=== PATIENT | female | born 1940 | race Caucasian/White ===

== ENCOUNTER 2019-09-20 18:37 | Emergency (ER) | payer MEDICARE, OTHER ==
[~2019-09-20] VITALS: Ht 162.6 cm; Wt 63.6 kg
[2019-09-20 19:26] LABS: BASO # 0.1 10^3/uL (0.0-0.2); BASO % 0.6 % (0.0-1.0); EOS # 0.3 10^3/uL (0.0-0.5); EOS % 3.8 % (0.0-3.0); LYMPH # 1.8 10^3/uL (1.5-5.0); LYMPH % 22.8 % (24.0-44.0); MEAN CORPUSCULAR HEMOGLOBIN 26.6 pg (27.0-33.0); MEAN CORPUSCULAR HGB CONC 30.6 g/dl (32.0-36.5); MONO # 0.8 10^3/uL (0.0-0.8); MONO % 9.6 % (0.0-5.0); NEUTROPHILS # 4.9 10^3/uL (1.5-8.5); NEUTROPHILS % 62.8 % (36.0-66.0); PLATELET COUNT, AUTOMATED 294 10^3/uL (150-450); RED BLOOD COUNT 4.14 10^6/uL (4.00-5.40); WHITE BLOOD COUNT 7.9 10^3/uL (4.0-10.0)
[2019-09-20 19:41] LABS: INR 1.03; PROTHROMBIN TIME 13.2 SECONDS (11.8-14.0)
[2019-09-20 19:42] LABS: PARTIAL THROMBOPLASTIN TIME 41.2 SECONDS (25.0-38.4)
[2019-09-20] MEDS ORDERED: CARV6.25 PO (19:47)
[2019-09-20] MEDS ORDERED: ROSU10TA6 PO (19:47)
[2019-09-20] MEDS ORDERED: GABA-843 PO (19:47)
[2019-09-20] MEDS ORDERED: FURO20TA2 PO (19:47)
[2019-09-20] MEDS ORDERED: ZOLP5TAB PO (19:47)
[2019-09-20] MEDS ORDERED: CETI10CH PO (19:47)
[2019-09-20] MEDS ORDERED: LEVO50TA5 PO (19:47)
[2019-09-20] MEDS ORDERED: ACET-683 PO (19:47)
[2019-09-20] MEDS ORDERED: CITA20TA6 PO (19:47)
[2019-09-20] MEDS ORDERED: FAMO20TA PO (19:47)
[2019-09-20] MEDS ORDERED: CYMB60CA3 PO (19:47)
[2019-09-20] MEDS ORDERED: ACID1CAP5 PO (19:47)
[2019-09-20] MEDS ORDERED: LORA0.5T11 PO (19:47)
[2019-09-20] MEDS ORDERED: K-TA10TA2 PO (19:47)
[2019-09-20] MEDS ORDERED: CLOP75TA2 PO (19:47)
[2019-09-20] MEDS ORDERED: PANT40TA3 PO (19:47)
[2019-09-20] MEDS ORDERED: MUCI1TAB16 PO (19:47)
[2019-09-20 20:00] LABS: ALBUMIN 3.3 GM/DL (3.2-5.2); ALT/SGPT 21 U/L (12-78); BILIRUBIN,DIRECT < 0.1 MG/DL (0.0-0.2); BILIRUBIN,TOTAL 0.3 MG/DL (0.2-1.0); BLOOD UREA NITROGEN 11 MG/DL (7-18); CALCIUM LEVEL 8.6 MG/DL (8.8-10.2); CARBON DIOXIDE LEVEL 30 MEQ/L (21-32); CHLORIDE LEVEL 103 MEQ/L (98-107); CK-MB VALUE MASS < 1.0 NG/ML (<3.6); CPK CREATINE PHOSPHOKINASE 105 U/L (26-192); CREATININE FOR GFR 1.03 MG/DL (0.55-1.30); FREE T4 1.28 NG/DL (0.76-1.46); GLOMERULAR FILTRATION RATE 54.9 (>32); GLUCOSE, FASTING 118 MG/DL (70-100); LIPASE 130 U/L (73-393); MB/CK RELATIVE INDEX 0.95 (< OR =4); SODIUM LEVEL 137 MEQ/L (136-145); TROPONIN I < 0.02 NG/ML (< 0.10)
[2019-09-20 20:01] LABS: INFLUENZA A AMPLIFICATION NEGATIVE (NEGATIVE); INFLUENZA B AMPLIFICATION NEGATIVE (NEGATIVE)
[2019-09-20] MEDS ORDERED: ISOVUE-370 76% 100ML VIAL (Q9967) As Ordered ONE (20:36)
--- NOTE | 2019-09-20 21:08 | REPVR ---
PROCEDURE INFORMATION: Exam: CT Angiography Chest With Contrast Exam date and time: 09/20/2019 8:40 PM Age: 78 years old Clinical history: Chest pain; Additional info: Chest pain, SOB TECHNIQUE: Imaging protocol: Computed tomographic angiography of the chest with intravenous contrast. 3D rendering: MIP reconstructed images were created and reviewed. Radiation optimization: All CT scans at this facility use at least one of these dose optimization techniques: automated exposure control; mA and/or kV adjustment per patient size (includes targeted exams where dose is matched to clinical indication); or iterative reconstruction. Contrast material: ISOVUE 370; Contrast volume: 75 ml; Contrast route: IV; COMPARISON: No relevant prior studies available. FINDINGS: Pulmonary arteries: The main pulmonary artery measures 27 mm. No pulmonary embolism is identified. Aorta: The ascending thoracic aorta measures 28 mm. Lungs: Mild pulmonary hyperinflation Minimal diffuse bullous change with scattered coarse interstitial markings and fibro-atelectatic change. There is mild biapical scar and minimal scattered foci of scar. Pleural space: Unremarkable. No pneumothorax. No pleural effusion. Heart: Status post sternotomy and mitral valve replacement with CABG. Gallbladder and bile ducts: Status post cholecystectomy. Adrenals: Slight fullness of the left adrenal. Lymph nodes: Unremarkable. No enlarged lymph nodes. Bones/joints: Moderate diffuse compression of L1 which is unfused and may have mobile superior endplate fragments. There is retropulsion of the posterior superior aspect. There is slight diffuse compression of T6 which appear to be chronic. Soft tissues: Unremarkable. IMPRESSION: 1. Evidence of COPD with hyperinflation and bullous change with scattered scar and coarse interstitial markings. 2. Status post sternotomy and mitral valve replacement. 3. Compression of L1 of uncertain age with unfused superior endplate fragments. 4. Status post cholecystectomy. 5. No pulmonary embolism is identified. Electronically signed by: Jhon Rincon On 09/20/2019 21:07:45 PM
[2019-09-20 21:15] VITALS: BP 146/62
[2019-09-20 21:32] VITALS: O2SAT 94
--- NOTE | 2019-09-21 08:12 | ECGEPIP ---
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
== END 2019-09-20 22:06 | disposition home or self-care (01) ==
LOC: M ED 18:37
DX: J06.9 Acute upper respiratory infection, unspecified (principal); E78.5 Hyperlipidemia, unspecified; F33.9 Major depressive disorder, recurrent, unspecified; K21.9 Gastro-esophageal reflux disease without esophagitis; G62.9 Polyneuropathy, unspecified; Z79.899 Other long term (current) drug therapy; Z79.01 Long term (current) use of anticoagulants; Z88.8 Allergy status to other drugs, medicaments and biological substances; Z91.048 Other nonmedicinal substance allergy status; Z87.891 Personal history of nicotine dependence
CPT/HCPCS: 36415; 71275; 80048; 80076; 82550; 82553; 83690; 84439; 84443; 84484; 85025; 85610; 85730; 87502; 93005; 93041; 94760; 99285; Q9967

== ENCOUNTER 2019-10-04 17:35 | Emergency (ER) | payer MEDICARE, OTHER ==
[~2019-10-04] VITALS: Ht 162.6 cm; Wt 63.6 kg
[~2019-10-04 17:35] MED LIST: ACET-683 PO; ACID1CAP5 PO; CARV6.25 PO; CETI10CH PO; CITA20TA6 PO; CLOP75TA2 PO; CYMB60CA3 PO; FAMO20TA PO; FURO20TA2 PO; GABA-843 PO; K-TA10TA2 PO; LEVO50TA5 PO; LORA0.5T11 PO; MUCI1TAB16 PO; PANT40TA3 PO; ROSU10TA6 PO; ZOLP5TAB PO
[2019-10-04] MEDS ORDERED: NS 1,000 ML IV SCH (18:45)
[2019-10-04] MEDS ORDERED: ONDANSETRON 4MG/2ML VIAL (J2405) IV ONE (18:45)
[2019-10-04 19:26] LABS: BASO % 0.5 % (0.0-1.0); EOS # 0.1 10^3/uL (0.0-0.5); EOS % 1.9 % (0.0-3.0); LYMPH # 2.1 10^3/uL (1.5-5.0); LYMPH % 28.2 % (24.0-44.0); MEAN CORPUSCULAR HEMOGLOBIN 26.6 pg (27.0-33.0); MEAN CORPUSCULAR HGB CONC 32.4 g/dl (32.0-36.5); MEAN CORPUSCULAR VOLUME 82.1 fl (80.0-96.0); MONO # 0.7 10^3/uL (0.0-0.8); MONO % 9.7 % (0.0-5.0); NEUTROPHILS # 4.4 10^3/uL (1.5-8.5); NEUTROPHILS % 59.3 % (36.0-66.0); PLATELET COUNT, AUTOMATED 443 10^3/uL (150-450); RED BLOOD COUNT 4.14 10^6/uL (4.00-5.40); WHITE BLOOD COUNT 7.5 10^3/uL (4.0-10.0)
[2019-10-04 19:43] LABS: ALBUMIN 2.8 GM/DL (3.2-5.2); ALT/SGPT 10 U/L (12-78); BILIRUBIN,DIRECT < 0.1 MG/DL (0.0-0.2); BILIRUBIN,TOTAL 0.3 MG/DL (0.2-1.0); BLOOD UREA NITROGEN 7 MG/DL (7-18); CALCIUM LEVEL 9.1 MG/DL (8.8-10.2); CARBON DIOXIDE LEVEL 27 MEQ/L (21-32); CHLORIDE LEVEL 90 MEQ/L (98-107); CK-MB VALUE MASS 1.5 NG/ML (<3.6); CPK CREATINE PHOSPHOKINASE 120 U/L (26-192); GLOMERULAR FILTRATION RATE > 60.0 (>32); GLUCOSE, FASTING 88 MG/DL (70-100); LIPASE 130 U/L (73-393); MB/CK RELATIVE INDEX 1.25 (< OR =4); NT-PRO BNP 1988 PG/ML (<450); POTASSIUM SERUM 4.4 MEQ/L (3.5-5.1); SODIUM LEVEL 128 MEQ/L (136-145); TOTAL PROTEIN 6.6 GM/DL (6.4-8.2); TROPONIN I < 0.02 NG/ML (< 0.10)
--- NOTE | 2019-10-04 21:12 | REPVR ---
PROCEDURE INFORMATION: Exam: CT Chest Without Contrast Exam date and time: 10/04/2019 8:28 PM Age: 78 years old Clinical history: Shortness of breath; Additional info: SOB; Edema vs left infiltrate TECHNIQUE: Imaging protocol: Computed tomography of the chest without contrast. 3D rendering: MIP reconstructed images were created and reviewed. Radiation optimization: All CT scans at this facility use at least one of these dose optimization techniques: automated exposure control; mA and/or kV adjustment per patient size (includes targeted exams where dose is matched to clinical indication); or iterative reconstruction. COMPARISON: CT ANGIO CHEST 09/20/2019 8:38 PM FINDINGS: Lungs: Bilateral coarse parenchymal airspace opacities in both upper lung zones with apical pleural parenchymal scarring. Differential includes scarring, pneumonitis, and neoplasm ( particularly in the right upper lobe). Findings not substantially different than the recent examination of 09/20/2019. Follow-up is suggested following treatment. Scarring in the anterior segment of the right upper lobe, right middle lobe, lingular lobe, and left upper lobe with bronchiectasis. Findings also stable. Reticular opacities demonstrated at the right lung base and to a lesser degree left lung base stable in comparison to the prior study which may represent scarring. Findings are stable in comparison to the prior study. Well inflated lungs consistent with COPD. Pleural space: Unremarkable. No pneumothorax. No pleural effusion. Heart: Some coronaries severe left atrial enlargement measures 4.8 cm maximum AP dimension. Status post CABG. Mediastinum: A small hiatal hernia is present. Pulmonary arteries: There is enlargement of the central pulmonary arteries, findings which can be associated with pulmonary arterial hypertension which should be correlated clinically. Aorta: The aorta demonstrates mild atherosclerotic calcification. Lymph nodes: Multiple smal mediastinal lymph nodes most likely postinflammatory and most likely neoplastic. Bones/joints: The spine demonstrates mild degenerative changes. Osteoporosis. Severe compression deformity of L1 with retropulsion of superior fracture fragments, stable in comparison to the prior study. Status post sternotomy. Soft tissues: Unremarkable. IMPRESSION: 1. Bilateral coarse parenchymal airspace opacities in both upper lung zones with apical pleural parenchymal scarring. Differential includes scarring, pneumonitis, and neoplasm ( particularly in the right upper lobe). Findings not substantially different than the recent examination of 09/20/2019. Follow-up is suggested following treatment. 2. Scarring in the anterior segment of the right upper lobe, right middle lobe, lingular lobe, and left upper lobe with bronchiectasis. Findings also stable. 3. There is enlargement of the central pulmonary arteries, findings which can be associated with pulmonary arterial hypertension which should be correlated clinically. 4. COPD. 5. Small hiatal hernia. 6. Multiple smal mediastinal lymph nodes most likely postinflammatory and most likely neoplastic. Electronically signed by: Ronnie Ken On 10/04/2019 21:11:52 PM
--- NOTE | 2019-10-04 22:14 | ECGEPIP ---
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
[2019-10-04] MEDS ORDERED: PRED10TA2 PO (22:21)
[2019-10-04 22:30] VITALS: BP 165/75
[2019-10-04] MEDS ORDERED: methylPREDNISolone INJ 125 MG/2 ML VIAL (J2930) IV ONE (22:30)
--- NOTE | 2019-10-05 08:42 | REP ---
Portable chest x-ray: Single view. History: Chest pain. Findings: EKG monitoring electrodes overlie the chest. The patient is status post aortic valve replacement. Median sternotomy wires are seen. There is biapical pleuroparenchymal fibrosis and pleural thickening. There are surgical sutures in the left apex. Diffusely prominent interstitial markings are seen consistent with pulmonary fibrosis. Heart is not enlarged. No pleural effusion is seen. There is diffuse osteopenia. No acute bony abnormality. Impression: Status post aortic valve replacement. Pulmonary fibrosis pattern. Biapical pleuroparenchymal scarring. Electronically Signed by Esau Cannon MD 10/05/2019 08:33 A
--- NOTE | 2019-10-06 19:22 | ED PDOC ---
Post-Departure Follow-Up dr matthews faxed fomral report of ct chest for fu sharonag Bethany Mason MD Oct 06, 2019 19:22
== END 2019-10-04 23:03 | disposition home or self-care (01) ==
LOC: M ED 17:35
DX: J44.1 Chronic obstructive pulmonary disease with (acute) exacerbation (principal); R91.8 Other nonspecific abnormal finding of lung field; I10 Essential (primary) hypertension; K21.9 Gastro-esophageal reflux disease without esophagitis; K44.9 Diaphragmatic hernia without obstruction or gangrene; R94.31 Abnormal electrocardiogram [ECG] [EKG]; Z79.1 Long term (current) use of non-steroidal anti-inflammatories (NSAID); Z79.52 Long term (current) use of systemic steroids; Z79.899 Other long term (current) drug therapy; Z95.2 Presence of prosthetic heart valve; Z91.048 Other nonmedicinal substance allergy status; Z91.09 Other allergy status, other than to drugs and biological substances
CPT/HCPCS: 71045; 71250; 80048; 80076; 82550; 82553; 83690; 83880; 84443; 84484; 85025; 93005; 93041; 94760; 96361; 96374; 96375; 99285; J2405; J2930

== ENCOUNTER → 2020-03-06 | Outpatient (REF) | payer MEDICARE, MEDICAID ==
[~2020-03-06] MED LIST changes: -LORA0.5T11 PO; +LORA0.5T5 PO; +PRED10TA2 PO
[2020-03-06 18:24] LABS: HEMATOCRIT 34.6 % (36.0-47.0); MEAN CORPUSCULAR HEMOGLOBIN 28.6 pg (27.0-33.0); MEAN CORPUSCULAR HGB CONC 31.8 g/dl (32.0-36.5); MEAN CORPUSCULAR VOLUME 89.9 fl (80.0-96.0); PLATELET COUNT, AUTOMATED 323 10^3/uL (150-450); RED BLOOD COUNT 3.85 10^6/uL (4.00-5.40); WHITE BLOOD COUNT 7.4 10^3/uL (4.0-10.0)
[2020-03-06 19:05] LABS: ALBUMIN 3.6 GM/DL (3.2-5.2); BILIRUBIN,TOTAL 0.3 MG/DL (0.2-1.0); CALCIUM LEVEL 8.6 MG/DL (8.8-10.2); CHOLESTEROL RISK RATIO 2.759 (<5); CREATININE FOR GFR 1.24 MG/DL (0.55-1.30); FREE T4 1.06 NG/DL (0.76-1.46); GLOMERULAR FILTRATION RATE 44.2 (>32); POTASSIUM SERUM 5.1 MEQ/L (3.5-5.1); THYROID STIMULATING HORMONE 2.37 uIU/ML (0.358-3.740); TOTAL PROTEIN 6.9 GM/DL (6.4-8.2)
== END ==
LOC: M SFHCADAM 13:14
PROVIDERS: ATTEND Family Medicine
DX: I25.810 Atherosclerosis of coronary artery bypass graft(s) without angina pectoris (principal); R30.0 Dysuria; Z79.899 Other long term (current) drug therapy

== ENCOUNTER → 2020-03-19 | Outpatient (REF) | payer MEDICARE, MEDICAID | LOC: M SFHCADAM 12:30 | PROVIDERS: ATTEND Family Medicine | DX: R30.0 Dysuria (principal) ==

== ENCOUNTER → 2020-03-20 | Outpatient (CLI) | payer MEDICARE, MEDICAID ==
--- NOTE | 2020-03-20 14:39 | REP ---
LEFT KNEE SERIES: Five views. HISTORY: Pain in the left knee. No comparison study. FINDINGS: There is some clothing artifact over the distal thigh. Diffuse osteopenia is visible. There is a large fabella. The patient is status post pinning and [id number] fixation for prior patellar fracture. The fracture appears to be healed although there is overall enlargement of the patella. Some lateral and superior articular spurring is seen in the patella. There is no evidence of joint effusion. No fracture is seen. Vascular calcification is noted. Mild medial and lateral tibial femoral spurring is present as well. IMPRESSION: Three compartment osteoarthritis. Prior ORIF patellar fracture. Mild vascular calcification and diffuse osteopenia. Electronically Signed by Esau Cannon MD 03/20/2020 04:12 P
== END ==
LOC: M ADAMS 11:54
PROVIDERS: ATTEND Family Medicine
DX: M17.12 Unilateral primary osteoarthritis, left knee (principal); M85.88 Other specified disorders of bone density and structure, other site; M25.562 Pain in left knee
CPT/HCPCS: 73564; G0463

== ENCOUNTER → 2020-03-31 | Outpatient (REF) | payer MEDICARE, MEDICAID ==
[2020-03-31 18:10] LABS: APPEARANCE, URINE HAZY (CLEAR); BACTERIA, URINE AUTO 1+ (NEGATIVE); BILIRUBIN, URINE AUTO NEGATIVE (NEGATIVE); BLOOD, URINE BLOOD NEGATIVE (NEGATIVE); CALCIUM OXALATE CRYSTALS SMALL; COLOR, URINE YELLOW (YELLOW); GLUCOSE, URINE (UA) AUTO NEGATIVE (NEGATIVE); KETONE, URINE AUTO NEGATIVE (NEGATIVE); LEUKOCYTE ESTERASE, URINE AUTO 3+ (NEGATIVE); MUCUS, URINE SMALL (NEGATIVE); NITRITE, URINE AUTO POSITIVE (NEGATIVE); PROTEIN, URINE AUTO NEGATIVE (NEGATIVE); RBC, URINE AUTO 2 /HPF (0-3); SPECIFIC GRAVITY URINE AUTO 1.009 (1.002-1.035); SQUAMOUS EPITHELIAL CELL UR AU 0 /HPF (0-6); TRANSITIONAL EPITHELIAL AUTO <1 /HPF; UROBILINOGEN, URINE AUTO 0.2 mg/dL (0.0-2.0); WBC, URINE AUTO 90 /HPF (0-3)
== END ==
LOC: M SFHCADAM 13:42
PROVIDERS: ATTEND Family Medicine
DX: R30.0 Dysuria (principal)